=== PATIENT | male | born 1955 | race Caucasian/White ===

== ENCOUNTER 2021-05-25 13:35 | Emergency (ER) | payer OTHER ==
[~2021-05-25] VITALS: Ht 162.6 cm; Wt 63.6 kg
[2021-05-25 20:50] VITALS: BP 123/74
== END 2021-05-25 21:03 | disposition home or self-care (01) ==
LOC: M ED 13:35
DX: K40.20 Bilateral inguinal hernia, without obstruction or gangrene, not specified as recurrent (principal); I10 Essential (primary) hypertension